=== PATIENT | female | born 1975 | race African-American/Black ===

== ENCOUNTER 2016-09-01 16:58 | Inpatient (IN) | payer OTHER ==
[2016-09-01 17:33] VITALS: BMI 31.3
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
[2016-09-01] MEDS ORDERED: P-EPHED 60MG/TRIPROLIDI 2.5MG TABLET PO PRN (18:14)
[2016-09-01] MEDS ORDERED: MAG HYDROX/AL HYDROX/SIMETH 30 ML UNIT-DOSE CUP PO PRN (18:14)
[2016-09-01] MEDS ORDERED: MAGNESIUM HYDROX 2400MG/30ML ORAL SUSPENSION 30 ML CUP PO PRN (18:14)
[2016-09-01] MEDS ORDERED: MAGNESIUM CITRATE 300 ML BOTTLE PO PRN (18:14)
[2016-09-01] MEDS ORDERED: MENTHOL/PHENOL 1 EACH UD MM PRN (18:14)
[2016-09-01] MEDS ORDERED: hydrOXYzine PAMOATE 50 MG CAPSULE (FP) PO PRN (18:14)
[2016-09-01] MEDS: QUEtiapine FUMARATE 200 MG TABLET PO SCH (22:49)
[2016-09-01] MEDS: THIAMINE HCL 100 MG TABLET (FP) PO SCH (22:49)
[2016-09-01] MEDS: RANITIDINE HCL 150 MG TABLET (FP) PO SCH (22:49)
[2016-09-01 23:28] LABS: URINE APPEARANCE CLOUDY; URINE BILIRUBIN NEGATIVE (NEGATIVE); URINE BLOOD NEGATIVE (NEGATIVE); URINE COLOR YELLOW; URINE GLUCOSE (UA) NEGATIVE (NEGATIVE); URINE KETONE NEGATIVE (NEGATIVE); URINE LEUK ESTERASE TRACE (NEGATIVE); URINE NITRITE NEGATIVE (NEGATIVE); URINE PROTEIN NEGATIVE (NEGATIVE); URINE UROBILINOGEN NEGATIVE E.U./dl (0.2-1.0)
[2016-09-01 23:44] LABS: URINE MUCUS RARE; URINE RBC 3 /hpf (0-3); URINE WBC 44 /hpf (3-5)
[2016-09-02] MEDS: metFORMIN HCL 500 MG TABLET (FP) PO SCH ×2 (06:39→16:50)
[2016-09-02] MEDS: PRENATAL VITAMINS W/ FOLIC ACID TABLET (FP) PO SCH (09:26)
[2016-09-02] MEDS: LISINOPRIL 10 MG TABLET (FP) PO SCH (09:26)
[2016-09-02] MEDS: RANITIDINE HCL 150 MG TABLET (FP) PO SCH ×2 (09:26→21:12)
[2016-09-02] MEDS: NICOTINE 14 MG/24 HOURS TOPICAL PATCH TD SCH (09:27)
[2016-09-02] MEDS: ARIPiprazole 10 MG TABLET PO SCH (09:27)
[2016-09-02 11:08] LABS: MCH 26.6 pg (25.7-33.7); MCHC 32.4 g/dl (32.0-36.0); MEAN CELL VOLUME 82.2 fl (80-96); MEAN PLT VOLUME 9.7 fl (7.5-11.1); PLATELET COUNT 294 K/MM3 (134-434); RDW 18.3 % (11.6-15.6); WHITE BLOOD COUNT 6.7 K/mm3 (4.0-10.0)
[2016-09-02 11:20] LABS: ALBUMIN 3.3 g/dl (3.4-5.0); ALK PHOS 75 U/L (45-117); ANION GAP 10 (8-16); BILIRUBIN,TOTAL 0.2 mg/dL (0.2-1.0); CALCIUM 9.2 mg/dL (8.5-10.1); CO2 23 mmol/L (21-32); COCKROFT - GAULT 174.9215; CREATININE 0.6 mg/dL (0.55-1.02); GLUCOSE,RANDOM 122 mg/dL (74-106); SGOT/AST 16 U/L (15-37); SGPT/ALT 17 U/L (12-78); TOT PROT 7.1 g/dl (6.4-8.2)
--- NOTE | 2016-09-02 11:26 | EKG ---
Test Reason : Blood Pressure : / mmHG Vent. Rate : 085 BPM Atrial Rate : 085 BPM P-R Int : 138 ms QRS Dur : 092 ms QT Int : 394 ms P-R-T Axes : 043 059 046 degrees QTc Int : 468 ms NORMAL SINUS RHYTHM NORMAL ECG NO PREVIOUS ECGS AVAILABLE Confirmed by DIANELYS HARRIS MD ([id number]) on 09/02/2016 11:25:35 AM Referred By: Confirmed By:DIANELYS HARRIS MD
[2016-09-02 12:25] LABS: HIV 1 & 2 AB NEGATIVE; HIV 1 AGp24 NEGATIVE
[2016-09-02] MEDS: THIAMINE HCL 100 MG TABLET (FP) PO SCH (21:12)
[2016-09-02] MEDS: QUEtiapine FUMARATE 200 MG TABLET PO SCH (21:12)
[2016-09-03] MEDS: metFORMIN HCL 500 MG TABLET (FP) PO SCH ×2 (06:18→17:05)
[2016-09-03] MEDS: RANITIDINE HCL 150 MG TABLET (FP) PO SCH ×2 (09:48→21:13)
[2016-09-03] MEDS: LISINOPRIL 10 MG TABLET (FP) PO SCH (09:48)
[2016-09-03] MEDS: PRENATAL VITAMINS W/ FOLIC ACID TABLET (FP) PO SCH (09:48)
[2016-09-03] MEDS: ARIPiprazole 10 MG TABLET PO SCH (09:48)
[2016-09-03] MEDS: NICOTINE 14 MG/24 HOURS TOPICAL PATCH TD SCH (09:49)
[2016-09-03] MEDS: QUEtiapine FUMARATE 200 MG TABLET PO SCH (21:13)
[2016-09-03] MEDS: THIAMINE HCL 100 MG TABLET (FP) PO SCH (21:13)
[2016-09-04] MEDS: metFORMIN HCL 500 MG TABLET (FP) PO SCH ×2 (06:17→17:12)
[2016-09-04] MEDS: PRENATAL VITAMINS W/ FOLIC ACID TABLET (FP) PO SCH (09:47)
[2016-09-04] MEDS: LISINOPRIL 10 MG TABLET (FP) PO SCH (09:47)
[2016-09-04] MEDS: ARIPiprazole 10 MG TABLET PO SCH (09:47)
[2016-09-04] MEDS: RANITIDINE HCL 150 MG TABLET (FP) PO SCH ×2 (09:47→21:05)
[2016-09-04] MEDS: NICOTINE 14 MG/24 HOURS TOPICAL PATCH TD SCH (09:47)
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
[2016-09-04] MEDS: traZODone HCL 100 MG TABLET (FP) PO SCH (21:05)
[2016-09-04] MEDS: THIAMINE HCL 100 MG TABLET (FP) PO SCH (21:06)
[2016-09-04] MEDS: NICOTINE POLACRILEX 2 MG GUM BC PRN (21:06)
[2016-09-05] MEDS: metFORMIN HCL 500 MG TABLET (FP) PO SCH ×2 (06:22→16:47)
[2016-09-05] MEDS: RANITIDINE HCL 150 MG TABLET (FP) PO SCH ×2 (09:38→21:08)
[2016-09-05] MEDS: LISINOPRIL 10 MG TABLET (FP) PO SCH (09:38)
[2016-09-05] MEDS: ARIPiprazole 10 MG TABLET PO SCH (09:38)
[2016-09-05] MEDS: PRENATAL VITAMINS W/ FOLIC ACID TABLET (FP) PO SCH (09:38)
[2016-09-05] MEDS: NICOTINE 14 MG/24 HOURS TOPICAL PATCH TD SCH (09:38)
[2016-09-05] MEDS: THIAMINE HCL 100 MG TABLET (FP) PO SCH (21:08)
[2016-09-05] MEDS: traZODone HCL 100 MG TABLET (FP) PO SCH (21:08)
[2016-09-06] MEDS: metFORMIN HCL 500 MG TABLET (FP) PO SCH ×2 (06:20→17:08)
[2016-09-06] MEDS: PRENATAL VITAMINS W/ FOLIC ACID TABLET (FP) PO SCH (09:47)
[2016-09-06] MEDS: LISINOPRIL 10 MG TABLET (FP) PO SCH (09:47)
[2016-09-06] MEDS: ARIPiprazole 10 MG TABLET PO SCH (09:47)
[2016-09-06] MEDS: RANITIDINE HCL 150 MG TABLET (FP) PO SCH ×2 (09:47→21:09)
[2016-09-06] MEDS: NICOTINE 14 MG/24 HOURS TOPICAL PATCH TD SCH (09:48)
[2016-09-06] MEDS: traZODone HCL 100 MG TABLET (FP) PO SCH (21:09)
[2016-09-06] MEDS: THIAMINE HCL 100 MG TABLET (FP) PO SCH (21:09)
[2016-09-07] MEDS: metFORMIN HCL 500 MG TABLET (FP) PO SCH ×2 (06:32→16:31)
[2016-09-07] MEDS: NICOTINE 14 MG/24 HOURS TOPICAL PATCH TD SCH (09:39)
[2016-09-07] MEDS: ARIPiprazole 10 MG TABLET PO SCH (09:39)
[2016-09-07] MEDS: PRENATAL VITAMINS W/ FOLIC ACID TABLET (FP) PO SCH (09:40)
[2016-09-07] MEDS: RANITIDINE HCL 150 MG TABLET (FP) PO SCH ×2 (09:40→21:13)
[2016-09-07] MEDS: LISINOPRIL 10 MG TABLET (FP) PO SCH (09:40)
[2016-09-07] MEDS: traZODone HCL 100 MG TABLET (FP) PO SCH (21:13)
[2016-09-07] MEDS: THIAMINE HCL 100 MG TABLET (FP) PO SCH (21:13)
[2016-09-08] MEDS: metFORMIN HCL 500 MG TABLET (FP) PO SCH ×2 (07:03→16:50)
[2016-09-08] MEDS: ARIPiprazole 10 MG TABLET PO SCH (09:39)
[2016-09-08] MEDS: PRENATAL VITAMINS W/ FOLIC ACID TABLET (FP) PO SCH (09:39)
[2016-09-08] MEDS: RANITIDINE HCL 150 MG TABLET (FP) PO SCH ×2 (09:40→21:14)
[2016-09-08] MEDS: NICOTINE 14 MG/24 HOURS TOPICAL PATCH TD SCH (09:40)
[2016-09-08] MEDS: LISINOPRIL 10 MG TABLET (FP) PO SCH (10:37)
[2016-09-08] MEDS: THIAMINE HCL 100 MG TABLET (FP) PO SCH (21:14)
[2016-09-08] MEDS: traZODone HCL 100 MG TABLET (FP) PO SCH (21:14)
[2016-09-09] MEDS: metFORMIN HCL 500 MG TABLET (FP) PO SCH ×2 (06:52→16:58)
[2016-09-09] MEDS: NICOTINE 14 MG/24 HOURS TOPICAL PATCH TD SCH (09:34)
[2016-09-09] MEDS: ARIPiprazole 10 MG TABLET PO SCH (09:34)
[2016-09-09] MEDS: PRENATAL VITAMINS W/ FOLIC ACID TABLET (FP) PO SCH (09:34)
[2016-09-09] MEDS: LISINOPRIL 10 MG TABLET (FP) PO SCH (09:34)
[2016-09-09] MEDS: RANITIDINE HCL 150 MG TABLET (FP) PO SCH ×2 (09:35→21:11)
[2016-09-09] MEDS: IBUPROFEN 400 MG TABLET (FP) PO PRN (18:29)
[2016-09-09] MEDS: THIAMINE HCL 100 MG TABLET (FP) PO SCH (21:09)
[2016-09-09] MEDS: traZODone HCL 100 MG TABLET (FP) PO SCH (21:10)
[2016-09-10] MEDS: metFORMIN HCL 500 MG TABLET (FP) PO SCH ×2 (06:46→17:43)
[2016-09-10] MEDS: IBUPROFEN 400 MG TABLET (FP) PO PRN ×3 (07:23→20:12)
[2016-09-10] MEDS: NICOTINE 14 MG/24 HOURS TOPICAL PATCH TD SCH (09:33)
[2016-09-10] MEDS: ARIPiprazole 10 MG TABLET PO SCH (09:33)
[2016-09-10] MEDS: PRENATAL VITAMINS W/ FOLIC ACID TABLET (FP) PO SCH (09:34)
[2016-09-10] MEDS: LISINOPRIL 10 MG TABLET (FP) PO SCH (09:34)
[2016-09-10] MEDS: RANITIDINE HCL 150 MG TABLET (FP) PO SCH ×2 (09:34→21:10)
[2016-09-10] MEDS: NICOTINE POLACRILEX 2 MG GUM BC PRN ×2 (09:35→17:44)
[2016-09-10] MEDS ORDERED: traZODone HCL 50 MG TABLET (FP) ONE (20:44)
[2016-09-10] MEDS: THIAMINE HCL 100 MG TABLET (FP) PO SCH (21:10)
[2016-09-10] MEDS: traZODone HCL 100 MG TABLET (FP) PO SCH (21:11)
[2016-09-10] MEDS: ACETAMINOPHEN 325 MG TABLET (FP) PO PRN (22:09)
[2016-09-11] MEDS: metFORMIN HCL 500 MG TABLET (FP) PO SCH ×2 (06:39→16:46)
[2016-09-11] MEDS: IBUPROFEN 400 MG TABLET (FP) PO PRN (07:13)
[2016-09-11] MEDS ORDERED: ARIPiprazole 5 MG TABLET (FP) ONE (08:46)
[2016-09-11] MEDS: RANITIDINE HCL 150 MG TABLET (FP) PO SCH ×2 (09:50→21:06)
[2016-09-11] MEDS: PRENATAL VITAMINS W/ FOLIC ACID TABLET (FP) PO SCH (09:50)
[2016-09-11] MEDS: LISINOPRIL 10 MG TABLET (FP) PO SCH (09:51)
[2016-09-11] MEDS: NICOTINE 14 MG/24 HOURS TOPICAL PATCH TD SCH (09:52)
[2016-09-11] MEDS: ARIPiprazole 10 MG TABLET PO SCH (09:52)
[2016-09-11] MEDS: NICOTINE POLACRILEX 2 MG GUM BC PRN (13:06)
--- NOTE | 2016-09-11 13:30 | PN ---
[facility] Progress Note Note: Pt. c/o dental abscess left lower molar. Mouth : Swollen gum in the area of 1st lt. lower molar P : viscous lidocaine clindamycin motrin 600mg
[2016-09-11] MEDS ORDERED: LIDOCAINE VISCOUS 2% ORAL/TOP 20 ML UNIT-DOSE CUP MM PRN (13:31)
[2016-09-11] MEDS: CLINDAMYCIN HCL 150 MG CAPSULE (FP) PO SCH ×3 (14:39→21:06)
[2016-09-11] MEDS: IBUPROFEN 600 MG TABLET (FP) PO PRN (18:08)
[2016-09-11] MEDS: THIAMINE HCL 100 MG TABLET (FP) PO SCH (21:06)
[2016-09-11] MEDS: traZODone HCL 100 MG TABLET (FP) PO SCH (21:06)
[2016-09-11] MEDS: LISINOPRIL 5 MG TABLET (FP) PO SCH (21:07)
[2016-09-12] MEDS: metFORMIN HCL 500 MG TABLET (FP) PO SCH ×2 (06:02→17:08)
[2016-09-12] MEDS: IBUPROFEN 600 MG TABLET (FP) PO PRN (09:47)
[2016-09-12] MEDS: PRENATAL VITAMINS W/ FOLIC ACID TABLET (FP) PO SCH (09:47)
[2016-09-12] MEDS: ARIPiprazole 10 MG TABLET PO SCH (09:48)
[2016-09-12] MEDS: CLINDAMYCIN HCL 150 MG CAPSULE (FP) PO SCH ×4 (09:48→21:22)
[2016-09-12] MEDS: RANITIDINE HCL 150 MG TABLET (FP) PO SCH ×2 (09:48→21:22)
[2016-09-12] MEDS: LISINOPRIL 5 MG TABLET (FP) PO SCH ×2 (09:48→21:22)
[2016-09-12] MEDS: NICOTINE 14 MG/24 HOURS TOPICAL PATCH TD SCH (09:49)
[2016-09-12] MEDS: traZODone HCL 100 MG TABLET (FP) PO SCH (21:22)
[2016-09-12] MEDS: THIAMINE HCL 100 MG TABLET (FP) PO SCH (21:22)
[2016-09-12] MEDS: ACETAMINOPHEN 325 MG TABLET (FP) PO PRN (21:23)
[2016-09-13] MEDS: metFORMIN HCL 500 MG TABLET (FP) PO SCH ×2 (06:32→17:20)
[2016-09-13] MEDS: LOPERAMIDE HCL 2 MG CAPSULE PO PRN (06:47)
[2016-09-13] MEDS: LISINOPRIL 5 MG TABLET (FP) PO SCH ×2 (09:46→21:16)
[2016-09-13] MEDS: CLINDAMYCIN HCL 150 MG CAPSULE (FP) PO SCH ×4 (09:46→21:16)
[2016-09-13] MEDS: ARIPiprazole 10 MG TABLET PO SCH (09:46)
[2016-09-13] MEDS: RANITIDINE HCL 150 MG TABLET (FP) PO SCH ×2 (09:47→21:16)
[2016-09-13] MEDS: NICOTINE 14 MG/24 HOURS TOPICAL PATCH TD SCH (09:47)
[2016-09-13] MEDS: PRENATAL VITAMINS W/ FOLIC ACID TABLET (FP) PO SCH (09:47)
[2016-09-13] MEDS: THIAMINE HCL 100 MG TABLET (FP) PO SCH (21:16)
[2016-09-13] MEDS: traZODone HCL 100 MG TABLET (FP) PO SCH (21:16)
[2016-09-13] MEDS: ACETAMINOPHEN 325 MG TABLET (FP) PO PRN (21:17)
[2016-09-14] MEDS: metFORMIN HCL 500 MG TABLET (FP) PO SCH ×2 (06:34→16:34)
[2016-09-14] MEDS: ALBUTEROL SO4 6.7 GM HFA INHALER IH PRN (08:54)
[2016-09-14] MEDS: PRENATAL VITAMINS W/ FOLIC ACID TABLET (FP) PO SCH (09:49)
[2016-09-14] MEDS: CLINDAMYCIN HCL 150 MG CAPSULE (FP) PO SCH ×4 (09:49→21:09)
[2016-09-14] MEDS: RANITIDINE HCL 150 MG TABLET (FP) PO SCH ×2 (09:49→21:09)
[2016-09-14] MEDS: ARIPiprazole 10 MG TABLET PO SCH (09:49)
[2016-09-14] MEDS: LISINOPRIL 5 MG TABLET (FP) PO SCH ×2 (09:49→21:09)
[2016-09-14] MEDS: NICOTINE POLACRILEX 2 MG GUM BC PRN (09:51)
[2016-09-14] MEDS: NICOTINE 14 MG/24 HOURS TOPICAL PATCH TD SCH (09:51)
[2016-09-14] MEDS ORDERED: BENZOCAINE 20 % GEL 9 GM TUBE MM PRN (13:00)
[2016-09-14] MEDS: LOPERAMIDE HCL 2 MG CAPSULE PO PRN (18:01)
[2016-09-14] MEDS: THIAMINE HCL 100 MG TABLET (FP) PO SCH (21:09)
[2016-09-14] MEDS: traZODone HCL 100 MG TABLET (FP) PO SCH (21:09)
[2016-09-15] MEDS: metFORMIN HCL 500 MG TABLET (FP) PO SCH ×2 (06:05→17:14)
[2016-09-15] MEDS: PRENATAL VITAMINS W/ FOLIC ACID TABLET (FP) PO SCH (10:05)
[2016-09-15] MEDS: CLINDAMYCIN HCL 150 MG CAPSULE (FP) PO SCH ×4 (10:05→21:17)
[2016-09-15] MEDS: ARIPiprazole 10 MG TABLET PO SCH (10:05)
[2016-09-15] MEDS: RANITIDINE HCL 150 MG TABLET (FP) PO SCH ×2 (10:05→21:18)
[2016-09-15] MEDS: LISINOPRIL 5 MG TABLET (FP) PO SCH ×2 (10:05→21:18)
[2016-09-15] MEDS: NICOTINE 14 MG/24 HOURS TOPICAL PATCH TD SCH (10:07)
[2016-09-15] MEDS: IBUPROFEN 600 MG TABLET (FP) PO PRN (17:33)
[2016-09-15] MEDS ORDERED: traZODone HCL 50 MG TABLET (FP) ONE (19:23)
[2016-09-15] MEDS: traZODone HCL 100 MG TABLET (FP) PO SCH (21:17)
[2016-09-15] MEDS: THIAMINE HCL 100 MG TABLET (FP) PO SCH (21:18)
[2016-09-15] MEDS: ACETAMINOPHEN 325 MG TABLET (FP) PO PRN (21:18)
[2016-09-16] MEDS: IBUPROFEN 600 MG TABLET (FP) PO PRN ×2 (03:57→17:52)
[2016-09-16] MEDS: LOPERAMIDE HCL 2 MG CAPSULE PO PRN ×2 (03:57→11:03)
[2016-09-16] MEDS: guaiFENesin/D-METHORPHAN HB 10 ML UNIT-DOSE CUPS PO PRN ×3 (03:58→17:52)
[2016-09-16] MEDS: metFORMIN HCL 500 MG TABLET (FP) PO SCH ×2 (06:47→16:50)
[2016-09-16] MEDS ORDERED: PT OWN MED DRAWER 7, Y5N ONE (08:56)
[2016-09-16] MEDS: NICOTINE 14 MG/24 HOURS TOPICAL PATCH TD SCH (09:33)
[2016-09-16] MEDS: ALBUTEROL SO4 6.7 GM HFA INHALER IH PRN (09:33)
[2016-09-16] MEDS: ARIPiprazole 10 MG TABLET PO SCH (09:34)
[2016-09-16] MEDS: RANITIDINE HCL 150 MG TABLET (FP) PO SCH ×2 (09:34→21:14)
[2016-09-16] MEDS: PRENATAL VITAMINS W/ FOLIC ACID TABLET (FP) PO SCH (09:34)
[2016-09-16] MEDS: LISINOPRIL 5 MG TABLET (FP) PO SCH ×2 (09:34→21:15)
[2016-09-16] MEDS: CLINDAMYCIN HCL 150 MG CAPSULE (FP) PO SCH ×4 (09:34→21:14)
[2016-09-16] MEDS: ACETAMINOPHEN 325 MG TABLET (FP) PO PRN (14:35)
[2016-09-16] MEDS: diphenhydrAMINE HCL 50 MG CAPSULE PO PRN (21:14)
[2016-09-16] MEDS: traZODone HCL 100 MG TABLET (FP) PO SCH (21:14)
[2016-09-16] MEDS: THIAMINE HCL 100 MG TABLET (FP) PO SCH (21:15)
[2016-09-17] MEDS: metFORMIN HCL 500 MG TABLET (FP) PO SCH ×2 (06:24→16:50)
[2016-09-17] MEDS ORDERED: PT OWN MED DRAWER 7, Y5N ONE (08:20)
[2016-09-17] MEDS: ARIPiprazole 10 MG TABLET PO SCH (09:33)
[2016-09-17] MEDS: PRENATAL VITAMINS W/ FOLIC ACID TABLET (FP) PO SCH (09:33)
[2016-09-17] MEDS: RANITIDINE HCL 150 MG TABLET (FP) PO SCH ×2 (09:34→21:20)
[2016-09-17] MEDS: LISINOPRIL 5 MG TABLET (FP) PO SCH ×2 (09:34→21:22)
[2016-09-17] MEDS: NICOTINE 14 MG/24 HOURS TOPICAL PATCH TD SCH (09:34)
[2016-09-17] MEDS: CLINDAMYCIN HCL 150 MG CAPSULE (FP) PO SCH ×4 (09:34→21:21)
[2016-09-17] MEDS: diphenhydrAMINE HCL 50 MG CAPSULE PO PRN (21:20)
[2016-09-17] MEDS: traZODone HCL 100 MG TABLET (FP) PO SCH (21:20)
[2016-09-17] MEDS: THIAMINE HCL 100 MG TABLET (FP) PO SCH (21:20)
[2016-09-18] MEDS: metFORMIN HCL 500 MG TABLET (FP) PO SCH ×2 (06:26→16:56)
[2016-09-18] MEDS: ARIPiprazole 10 MG TABLET PO SCH (09:41)
[2016-09-18] MEDS: CLINDAMYCIN HCL 150 MG CAPSULE (FP) PO SCH ×2 (09:41→13:21)
[2016-09-18] MEDS: RANITIDINE HCL 150 MG TABLET (FP) PO SCH ×2 (09:42→21:13)
[2016-09-18] MEDS: NICOTINE 14 MG/24 HOURS TOPICAL PATCH TD SCH (09:42)
[2016-09-18] MEDS: LISINOPRIL 5 MG TABLET (FP) PO SCH ×2 (09:42→21:13)
[2016-09-18] MEDS: PRENATAL VITAMINS W/ FOLIC ACID TABLET (FP) PO SCH (09:42)
--- NOTE | 2016-09-18 13:02 | EKG ---
Test Reason : Blood Pressure : / mmHG Vent. Rate : 076 BPM Atrial Rate : 076 BPM P-R Int : 168 ms QRS Dur : 102 ms QT Int : 402 ms P-R-T Axes : 031 047 019 degrees QTc Int : 452 ms NORMAL SINUS RHYTHM NORMAL ECG WHEN COMPARED WITH ECG OF 01-SEP-2016 18:52, NO SIGNIFICANT CHANGE WAS FOUND Confirmed by ROBERT CHAMORRO MD ([id number]) on 09/18/2016 1:01:57 PM Referred By: Confirmed By:ROBERT CHAMORRO MD
[2016-09-18] MEDS: LOPERAMIDE HCL 2 MG CAPSULE PO PRN (16:14)
[2016-09-18] MEDS: guaiFENesin/D-METHORPHAN HB 10 ML UNIT-DOSE CUPS PO PRN (19:15)
[2016-09-18] MEDS: THIAMINE HCL 100 MG TABLET (FP) PO SCH (21:12)
[2016-09-18] MEDS: traZODone HCL 100 MG TABLET (FP) PO SCH (21:13)
[2016-09-18] MEDS: diphenhydrAMINE HCL 50 MG CAPSULE PO PRN (21:13)
[2016-09-18] MEDS ORDERED: PT OWN MED DRAWER 7, Y5N ONE (23:04)
[2016-09-19] MEDS: metFORMIN HCL 500 MG TABLET (FP) PO SCH ×2 (06:20→16:48)
[2016-09-19] MEDS: PRENATAL VITAMINS W/ FOLIC ACID TABLET (FP) PO SCH (09:53)
[2016-09-19] MEDS: ARIPiprazole 10 MG TABLET PO SCH (09:53)
[2016-09-19] MEDS: NICOTINE 14 MG/24 HOURS TOPICAL PATCH TD SCH (09:53)
[2016-09-19] MEDS: RANITIDINE HCL 150 MG TABLET (FP) PO SCH ×2 (09:53→21:06)
[2016-09-19] MEDS: LISINOPRIL 5 MG TABLET (FP) PO SCH ×2 (10:06→21:06)
[2016-09-19] MEDS: THIAMINE HCL 100 MG TABLET (FP) PO SCH (21:06)
[2016-09-19] MEDS: traZODone HCL 100 MG TABLET (FP) PO SCH (21:06)
[2016-09-20] MEDS: metFORMIN HCL 500 MG TABLET (FP) PO SCH ×2 (06:26→16:30)
[2016-09-20] MEDS ORDERED: PT OWN MED DRAWER 7, Y5N ONE (09:00)
[2016-09-20] MEDS: NICOTINE 14 MG/24 HOURS TOPICAL PATCH TD SCH (09:55)
[2016-09-20] MEDS: LISINOPRIL 5 MG TABLET (FP) PO SCH ×2 (09:56→21:10)
[2016-09-20] MEDS: RANITIDINE HCL 150 MG TABLET (FP) PO SCH ×2 (09:56→21:10)
[2016-09-20] MEDS: ARIPiprazole 10 MG TABLET PO SCH (09:56)
[2016-09-20] MEDS: PRENATAL VITAMINS W/ FOLIC ACID TABLET (FP) PO SCH (09:56)
[2016-09-20] MEDS: traZODone HCL 100 MG TABLET (FP) PO SCH (21:10)
[2016-09-20] MEDS: diphenhydrAMINE HCL 50 MG CAPSULE PO PRN (21:10)
[2016-09-20] MEDS: THIAMINE HCL 100 MG TABLET (FP) PO SCH (21:10)
[2016-09-21] MEDS: metFORMIN HCL 500 MG TABLET (FP) PO SCH ×2 (06:20→16:42)
[2016-09-21] MEDS: PRENATAL VITAMINS W/ FOLIC ACID TABLET (FP) PO SCH (09:47)
[2016-09-21] MEDS: ARIPiprazole 10 MG TABLET PO SCH (09:47)
[2016-09-21] MEDS: NICOTINE 14 MG/24 HOURS TOPICAL PATCH TD SCH (09:48)
[2016-09-21] MEDS: LISINOPRIL 5 MG TABLET (FP) PO SCH ×2 (09:48→21:16)
[2016-09-21] MEDS: RANITIDINE HCL 150 MG TABLET (FP) PO SCH ×2 (09:48→21:15)
[2016-09-21] MEDS: traZODone HCL 100 MG TABLET (FP) PO SCH (21:15)
[2016-09-21] MEDS: THIAMINE HCL 100 MG TABLET (FP) PO SCH (21:15)
[2016-09-21] MEDS: diphenhydrAMINE HCL 50 MG CAPSULE PO PRN (21:17)
[2016-09-22] MEDS: metFORMIN HCL 500 MG TABLET (FP) PO SCH (06:48)
[2016-09-22 06:56] VITALS: TEMP 97.9
[2016-09-22] MEDS: PRENATAL VITAMINS W/ FOLIC ACID TABLET (FP) PO SCH (09:28)
[2016-09-22] MEDS: RANITIDINE HCL 150 MG TABLET (FP) PO SCH (09:28)
[2016-09-22] MEDS: LISINOPRIL 5 MG TABLET (FP) PO SCH (09:28)
[2016-09-22] MEDS: ARIPiprazole 10 MG TABLET PO SCH (09:28)
[2016-09-22] MEDS: NICOTINE 14 MG/24 HOURS TOPICAL PATCH TD SCH (09:29)
[2016-09-22 10:15] VITALS: BP 102/70; PULSE 106
--- NOTE | 2016-09-22 14:50 | PN ---
[facility] Progress Note Note: Called by nursing staff this morning for discharge order for patient. According staff, she was referred to [facility] for outpatient treatment She was on Abilify 20 mg po daily and Trazadone 20 mg po HS. Scripts for these medications were electronically transferred to [facility] at [address] [place] [address]. Patient, according to saff was stable on discharge. See staff note for further information
== END 2016-09-22 09:42 | disposition home or self-care (01) | DRG 772 ==
LOC: YASAS 16:58 → Y3E 18:40
PROVIDERS: ADMIT Psychiatry & Neurology Psychiatry; ATTEND Psychiatry & Neurology Psychiatry
PROC: HZ42ZZZ Group Counseling for Substance Abuse Treatment, Cognitive-Behavioral (ICD-10-PCS; principal; 2016-09-22)
DX: F14.20 Cocaine dependence, uncomplicated (principal); F12.20 Cannabis dependence, uncomplicated; F17.213 Nicotine dependence, cigarettes, with withdrawal; F25.1 Schizoaffective disorder, depressive type; F31.9 Bipolar disorder, unspecified; I10 Essential (primary) hypertension; K21.9 Gastro-esophageal reflux disease without esophagitis; E11.42 Type 2 diabetes mellitus with diabetic polyneuropathy; Z79.84 Long term (current) use of oral hypoglycemic drugs; J45.22 Mild intermittent asthma with status asthmaticus; Z86.19 Personal history of other infectious and parasitic diseases
CPT/HCPCS: 36415; 80053; 81003; 81015; 85027; 86593; 87389; 93005; 93010

== ENCOUNTER 2018-06-17 13:41 | Inpatient (IN) | payer OTHER ==
[2018-06-17 15:40] VITALS: BMI 23.0
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
[2018-06-17] MEDS ORDERED: ALBUTEROL SO4 8 GM HFA INHALER IH PRN (19:27)
[2018-06-17] MEDS ORDERED: MAGNESIUM CITRATE 300 ML BOTTLE PO PRN (19:28)
[2018-06-17] MEDS ORDERED: MAG HYDROX/AL HYDROX/SIMETH 30 ML UNIT-DOSE CUP PO PRN (19:28)
[2018-06-17] MEDS ORDERED: guaiFENesin/D-METHORPHAN HB 10 ML UNIT-DOSE CUPS PO PRN (19:28)
[2018-06-17] MEDS ORDERED: ACETAMINOPHEN 325 MG TABLET (FP) PO PRN (19:28)
[2018-06-17] MEDS ORDERED: LOPERAMIDE HCL 2 MG CAPSULE PO PRN (19:28)
[2018-06-17] MEDS ORDERED: NICOTINE POLACRILEX 2 MG GUM BC PRN (19:28)
[2018-06-17] MEDS ORDERED: MENTHOL/PHENOL 1 EACH UD MM PRN (19:28)
[2018-06-17] MEDS ORDERED: IBUPROFEN 400 MG TABLET (FP) PO PRN (19:28)
[2018-06-17] MEDS ORDERED: MAGNESIUM HYDROX 2400MG/30ML ORAL SUSPENSION 30 ML CUP PO PRN (19:28)
[2018-06-17] MEDS ORDERED: P-EPHED 60MG/TRIPROLIDI 2.5MG TABLET PO PRN (19:28)
[2018-06-17] MEDS ORDERED: diazePAM 5 MG TABLET PO ONE (19:28)
[2018-06-17] MEDS: diazePAM 5 MG TABLET PO SCH (22:18)
[2018-06-17] MEDS: RANITIDINE HCL 150 MG TABLET (FP) PO SCH (22:18)
[2018-06-17] MEDS: THIAMINE HCL 100 MG TABLET (FP) PO SCH (22:18)
[2018-06-18] MEDS: diazePAM 5 MG TABLET PO SCH ×3 (05:47→22:49)
[2018-06-18] MEDS: FERROUS SO4 325 MG TABLET (FP) PO SCH ×3 (08:11→17:19)
[2018-06-18] MEDS: diazePAM 5 MG TABLET PO PRN ×2 (10:11→17:18)
[2018-06-18] MEDS: LISINOPRIL 10 MG TABLET (FP) PO SCH (10:11)
[2018-06-18] MEDS: RANITIDINE HCL 150 MG TABLET (FP) PO SCH ×2 (10:11→22:49)
[2018-06-18] MEDS: PRENATAL VITAMINS W/ FOLIC ACID TABLET (FP) PO SCH (10:11)
[2018-06-18] MEDS: NICOTINE 14 MG/24 HOURS TOPICAL PATCH TD SCH (10:12)
[2018-06-18 10:51] LABS: HEMATOCRIT 34.7 % (32.4-45.2); HEMOGLOBIN 11.6 GM/dL (10.7-15.3); MCH 28.1 pg (25.7-33.7); MCHC 33.3 g/dl (32.0-36.0); MEAN CELL VOLUME 84.4 fl (80-96); MEAN PLT VOLUME 9.5 fl (7.5-11.1); PLATELET COUNT 270 K/MM3 (134-434); RBC 4.11 M/mm3 (3.60-5.2); RDW 18.7 % (11.6-15.6); WHITE BLOOD COUNT 3.6 K/mm3 (4.0-10.0)
--- NOTE | 2018-06-18 10:57 | PN ---
S CIWA - CIWA Score Nausea/Vomitin-No Nausea/No Vomiting Muscle Tremors: 4-Moderate,w/Arms Extend Anxiety: 4-Mod. Anxious/Guarded Agitation: 4-Moderately Restless Paroxysmal Sweats: 3 Orientation: 0-Oriented Tacttile Disturbances: 0-None Auditory Disturbances: 0-None Visual Disturbances: 0-None Headache: 1-Very Mild CIWA-Ar Total Score: 16 [facility] Progress Note (SOAP) Subjective: headache sweats shakes interrupted sleep body aches restless nasal congestion chills Objective: 06/18/18 10:55 Vital Signs Temperature 98.1 F 06/18/18 10:00 Pulse Rate 72 06/18/18 10:00 Respiratory Rate 18 06/18/18 10:00 Blood Pressure 125/58 L 06/18/18 10:00 O2 Sat by Pulse Oximetry (%) Laboratory Tests 06/17/18 17:02 POC Glucometer 130 rest of labs pending aaox3 lying in bed no acute distress Assessment: 06/18/18 10:56 withdrawal sx Plan: continue detox increase fluids motrin/tylenol prn
[2018-06-18 11:10] LABS: ALK PHOS 64 U/L (45-117); ANION GAP 3 MMOL/L (8-16); BILIRUBIN,TOTAL 0.1 mg/dL (0.2-1); BLOOD UREA NITROGEN 12 mg/dL (7-18); CALCIUM 8.5 mg/dL (8.5-10.1); CHLORIDE 111 mmol/L (98-107); CO2 26 mmol/L (21-32); CREATININE 0.6 mg/dL (0.55-1.3); GLUCOSE,RANDOM 103 mg/dL (74-106); SGOT/AST 19 U/L (15-37); SGPT/ALT 24 U/L (13-61); SODIUM 140 mmol/L (136-145); TOT PROT 6.1 g/dl (6.4-8.2)
[2018-06-18] MEDS ORDERED: FLU VACCINE QUAD 60 MCG/0.5 ML (MDV 18-19) IM ONE (12:00)
--- NOTE | 2018-06-18 13:41 | CONSULT ---
[facility] Psychiatric Consult - Data Date of interview: 06/18/18 Admission source: [facility] Identifying data: Patient is a 43 year old single female, without children, unemployed, and currently homeless. This is one of multiple admissions for patient. Patient admitted to for alcohol dependence. Substance Abuse History: Smoking Cessation. Smoking history: Current every day smoker. Have you smoked in the past 12 months: Yes. Aproximately how many cigarettes per day: 20. Cigars Per Day: 0. Hx Chewing Tobacco Use: No. Initiated information on smoking cessation: Yes. 'Breaking Loose' booklet given : 06/17/18. - Substance & Tx. History. Hx Alcohol Use: Yes. Hx Substance Use : Yes. Substance Use Type: Alcohol, Cocaine, Marijuana. Hx Substance Use Treatment: Yes (last detox summer). - Substances Abused. Alcohol. Route: Oral. Frequency: Daily. Amount used: 3 pints vodka. Age of first use: 16. Date of Last Use: 06/16/18. Crack. Route: Smoking. Frequency: Daily. Amount used: $400. Age of first use: 28. Date of Last Use: 06/16/18. Marijuana/Hashish. Route: Smoking. Frequency: Daily. Amount used: $50. Age of first use: 13. Date of Last Use: 06/16/18. crystal meth. Route: Smoking. Frequency: 3-6 times per week. Amount used: 3 grams. Age of first use: 43. Date of Last Use: 06/16/18 Medical History: anemia, hypertension, Hypercholesterolemia, hx hep B Psychiatric History: Patient presents as a poor historian, lethargic and mildly irritable. She reports h/o multiple hospitalizations. States her most recent prescribed medications were abilify 20mg + Trazodone 200mg HS. Patient denies current outpatient psychiatric care and reports noncompliance to medications. States she is not interested in rehab and will see her psychiatrist when she returns home. As per Dr. Novak's entry 09/04/2016, patient has been prescribed geodon, seroquel, trazodone, depakote, zoloft lexapro, and ritalin and has been diagnosed with ADHD and schizoaffective disorder. At present patient reports difficulty sleeping. Physical/Sexual Abuse/Trauma History: denies but as Dr. Novak entry on 2016 Additional Comment: Urine Drug Screen Results: THC-Marijuana, MEJIA-Cocaine, AMP- Amphetamines, MET-Methamphetamine, BZO-Benzodiazepines Mental Status Exam - Mental Status Exam Alert and Oriented to: Time, Place, Person Cognitive Function: Fair Patient Appearance: Well Groomed Mood: Withdrawn, Irritable Affect: Mood Congruent Patient Behavior: Fatigued Speech Pattern: Delayed Voice Loudness: Moderately Soft/Quiet Thought Process: Intact, Goal Oriented Thought Disorder: Not Present Hallucinations: Denies Suicidal Ideation: Denies Homicidal Ideation: Denies Insight/Judgement: Poor Sleep: Poorly Appetite: Fair Muscle strength/Tone: Normal Gait/Station: Normal Psychiatric Findings - Problem List ([place] 1, 2,3) (1) Amphetamine dependence Current Visit: Yes Status: Acute (2) Alcohol dependence with uncomplicated withdrawal Current Visit: Yes Status: Acute (3) Cocaine dependence Current Visit: Yes Status: Chronic Qualifiers: Substance use status: uncomplicated Qualified Code(s): F14.20 - Cocaine dependence, uncomplicated (4) Nicotine dependence Current Visit: Yes Status: Chronic Qualifiers: Nicotine product type: cigarettes Substance use status: in withdrawal Qualified Code(s): F17.213 - Nicotine dependence, cigarettes, with withdrawal (5) Cannabis dependence, uncomplicated Current Visit: Yes Status: Chronic (6) Substance induced mood disorder Current Visit: Yes Status: Acute (7) Substance-induced sleep disorder Current Visit: Yes Status: Acute - Initial Treatment Plan Initial Treatment Plan: Psychoeducation provided. Detoxification in progress. Will order Trazodone 50mg qhs. Benefits and side effects discussed. Verbal consent given.
--- NOTE | 2018-06-18 16:33 | EKG ---
Test Reason : Blood Pressure : / mmHG Vent. Rate : 067 BPM Atrial Rate : 067 BPM P-R Int : 140 ms QRS Dur : 098 ms QT Int : 432 ms P-R-T Axes : -02 050 041 degrees QTc Int : 456 ms NORMAL SINUS RHYTHM NORMAL ECG WHEN COMPARED WITH ECG OF 17-SEP-2016 19:16, NO SIGNIFICANT CHANGE WAS FOUND Confirmed by Denny Wright ([id number]) on 06/18/2018 4:32:51 PM Referred By: Confirmed By:Denny Wright
[2018-06-18] MEDS: hydrOXYzine PAMOATE 25 MG CAPSULE (FP) PO PRN (22:49)
[2018-06-18] MEDS: THIAMINE HCL 100 MG TABLET (FP) PO SCH (22:49)
[2018-06-18] MEDS: traZODone HCL 50 MG TABLET (FP) PO SCH (22:49)
[2018-06-19] MEDS: diazePAM 5 MG TABLET PO PRN (06:54)
[2018-06-19] MEDS: FERROUS SO4 325 MG TABLET (FP) PO SCH ×3 (07:00→16:52)
[2018-06-19] MEDS: RANITIDINE HCL 150 MG TABLET (FP) PO SCH ×2 (10:22→22:50)
[2018-06-19] MEDS: PRENATAL VITAMINS W/ FOLIC ACID TABLET (FP) PO SCH (10:22)
[2018-06-19] MEDS: diazePAM 5 MG TABLET PO SCH ×2 (10:22→22:50)
[2018-06-19] MEDS: LISINOPRIL 10 MG TABLET (FP) PO SCH (10:22)
[2018-06-19] MEDS: NICOTINE 14 MG/24 HOURS TOPICAL PATCH TD SCH (10:23)
--- NOTE | 2018-06-19 10:39 | PN ---
S CIWA - CIWA Score Nausea/Vomitin-No Nausea/No Vomiting Muscle Tremors: 4-Moderate,w/Arms Extend Anxiety: 3 Agitation: 4-Moderately Restless Paroxysmal Sweats: 3 Orientation: 0-Oriented Tacttile Disturbances: 0-None Auditory Disturbances: 0-None Visual Disturbances: 0-None Headache: 0-None Present CIWA-Ar Total Score: 14 [facility] Progress Note (SOAP) Subjective: anxiety sweats irritable agitation tired Objective: 06/19/18 10:38 Vital Signs Temperature 98.1 F 06/19/18 09:55 Pulse Rate 83 06/19/18 09:55 Respiratory Rate 16 06/19/18 09:55 Blood Pressure 128/79 06/19/18 09:55 O2 Sat by Pulse Oximetry (%) Laboratory Tests 06/17/18 06/18/18 06/18/18 17:02 06:00 08:10 WBC RBC Hgb Hct MCV MCH MCHC RDW Plt Count MPV Sodium Potassium Chloride Carbon Dioxide Anion Gap BUN Creatinine Creat Clearance w eGFR POC Glucometer 130 Random Glucose Calcium Total Bilirubin AST ALT Alkaline Phosphatase Total Protein Albumin RPR Titer Nonreactive HIV 1&2 Antibody Screen Negative HIV P24 Antigen Negative 06/18/18 06/18/18 06/18/18 08:10 08:10 16:44 WBC 3.6 L RBC 4.11 Hgb 11.6 Hct 34.7 MCV 84.4 MCH 28.1 MCHC 33.3 RDW 18.7 H Plt Count 270 MPV 9.5 Sodium 140 Potassium 4.0 Chloride 111 H Carbon Dioxide 26 Anion Gap 3 L BUN 12 Creatinine 0.6 Creat Clearance w eGFR > 60 POC Glucometer 125 Random Glucose 103 Calcium 8.5 Total Bilirubin 0.1 L AST 19 ALT 24 Alkaline Phosphatase 64 Total Protein 6.1 L Albumin 3.0 L RPR Titer HIV 1&2 Antibody Screen HIV P24 Antigen 06/19/18 06:36 WBC RBC Hgb Hct MCV MCH MCHC RDW Plt Count MPV Sodium Potassium Chloride Carbon Dioxide Anion Gap BUN Creatinine Creat Clearance w eGFR POC Glucometer 102 Random Glucose Calcium Total Bilirubin AST ALT Alkaline Phosphatase Total Protein Albumin RPR Titer HIV 1&2 Antibody Screen HIV P24 Antigen aaox3 ambulating no acute distress Assessment: 06/19/18 10:38 withdrawal sx Plan: continue detox increase fluids
[2018-06-19] MEDS: MELATONIN 5 MG TABLETS PO PRN (22:50)
[2018-06-19] MEDS: traZODone HCL 50 MG TABLET (FP) PO SCH (22:50)
[2018-06-19] MEDS: THIAMINE HCL 100 MG TABLET (FP) PO SCH (22:50)
[2018-06-20] MEDS: FERROUS SO4 325 MG TABLET (FP) PO SCH ×3 (07:27→18:36)
[2018-06-20] MEDS: diazePAM 5 MG TABLET PO PRN (08:52)
[2018-06-20] MEDS: NICOTINE 14 MG/24 HOURS TOPICAL PATCH TD SCH (10:17)
[2018-06-20] MEDS: diazePAM 5 MG TABLET PO SCH ×2 (10:17→22:09)
[2018-06-20] MEDS: PRENATAL VITAMINS W/ FOLIC ACID TABLET (FP) PO SCH (10:17)
[2018-06-20] MEDS: LISINOPRIL 10 MG TABLET (FP) PO SCH (10:17)
[2018-06-20] MEDS: RANITIDINE HCL 150 MG TABLET (FP) PO SCH ×2 (10:18→22:09)
--- NOTE | 2018-06-20 10:37 | PN ---
[facility] Progress Note (SOAP) Subjective: sweats restless I'm feeling better Objective: 06/20/18 10:35 Vital Signs Temperature 97.9 F 06/20/18 09:42 Pulse Rate 78 06/20/18 09:42 Respiratory Rate 18 06/20/18 09:42 Blood Pressure 134/78 06/20/18 09:42 O2 Sat by Pulse Oximetry (%) aaox3 ambulating no acute distress Assessment: 06/20/18 10:37 mild withdrawal sx Plan: continue detox increase fluids d/c in am
[2018-06-20] MEDS: THIAMINE HCL 100 MG TABLET (FP) PO SCH (22:09)
[2018-06-20] MEDS: traZODone HCL 50 MG TABLET (FP) PO SCH (22:09)
[2018-06-20] MEDS: MELATONIN 5 MG TABLETS PO PRN (23:36)
[2018-06-20] MEDS: hydrOXYzine PAMOATE 25 MG CAPSULE (FP) PO PRN (23:36)
[2018-06-21] MEDS: FERROUS SO4 325 MG TABLET (FP) PO SCH (07:56)
[2018-06-21 09:28] VITALS: BP 106/51; PULSE 102; TEMP 97.7
--- NOTE | 2018-06-21 09:45 | DS ---
[facility] Detox Discharge Summary Admission Date: 06/17/18 Discharge Date: 06/21/18 - History Present History: Alcohol Dependence, Cannabis Dependence, Cocaine Dependence, Sedative Dependence - Physical Exam Results Vital Signs: Vital Signs Temperature 97.7 F 06/21/18 09:28 Pulse Rate 102 H 06/21/18 09:28 Respiratory Rate 18 06/21/18 09:28 Blood Pressure 106/51 L 06/21/18 09:28 O2 Sat by Pulse Oximetry (%) - Treatment Hospital Course: Detox Protocol Followed, Detoxed Safely, Responded well, Discharged Condition Good, Rehab Referral Accepted - Medication Discharge Medications: Ambulatory Orders traZODone HCL [Trazodone HCl] 200 mg PO HS 04/23/16 Lisinopril [Prinivil] 10 mg PO DAILY #60 tablet 04/27/16 Albuterol Sulfate Inhaler - [Ventolin HFA Inhaler -] 2 puff IH Q4H PRN #1 inhaler 09/21/16 Ferrous Sulfate [Feosol] 325 mg PO TIDCM #90 ud 09/21/16 Ranitidine [Zantac -] 150 mg PO BID #60 tablet 09/21/16 Aripiprazole [Abilify] 20 mg PO DAILY #30 tablet 09/22/16 - Diagnosis (1) Alcohol dependence with uncomplicated withdrawal Current Visit: Yes Status: Chronic (2) Amphetamine dependence Current Visit: Yes Status: Acute (3) Substance-induced sleep disorder Current Visit: Yes Status: Acute (4) Asthma Current Visit: Yes Status: Chronic Qualifiers: Asthma severity: mild Asthma persistence: unspecified Asthma complication type: uncomplicated Qualified Code(s): J45.909 - Unspecified asthma, uncomplicated (5) Cannabis dependence, uncomplicated Current Visit: Yes Status: Chronic (6) Cocaine dependence Current Visit: Yes Status: Chronic Qualifiers: Substance use status: uncomplicated Qualified Code(s): F14.20 - Cocaine dependence, uncomplicated (7) GERD (gastroesophageal reflux disease) Current Visit: Yes Status: Chronic Qualifiers: Esophagitis presence: without esophagitis Qualified Code(s): K21.9 - Gastro -esophageal reflux disease without esophagitis (8) Iron deficiency anemia Current Visit: Yes Status: Chronic Qualifiers: Iron deficiency anemia type: unspecified iron deficiency Qualified Code(s) : D50.9 - Iron deficiency anemia, unspecified (9) Nicotine dependence Current Visit: Yes Status: Chronic Qualifiers: Nicotine product type: cigarettes Substance use status: uncomplicated Qualified Code(s): F17.210 - Nicotine dependence, cigarettes, uncomplicated (10) Cocaine dependence, uncomplicated Current Visit: Yes Status: Chronic (11) Diabetes mellitus type II, controlled Current Visit: No Status: Chronic Qualifiers: Diabetes mellitus custodial insulin use: without terminal gauger use Diabetes mellitus complication detail: with diabetic retinopathy Proliferative retinopathy type: stable Laterality: bilateral (12) Diabetes mellitus with neuropathy Current Visit: No Status: Chronic Qualifiers: Diabetes mellitus type: type 2 (13) Hyperlipemia Current Visit: No Status: Chronic Qualifiers: Hyperlipidemia type: unspecified Qualified Code(s): E78.5 - Hyperlipidemia , unspecified (14) Hypertension Current Visit: Yes Status: Chronic Qualifiers: Hypertension type: essential hypertension Qualified Code(s): I10 - Essential (primary) hypertension (15) PTSD (post-traumatic stress disorder) Current Visit: No Status: Chronic (16) Schizoaffective disorder Current Visit: No Status: Chronic Qualifiers: Schizoaffective disorder type: depressive Qualified Code(s): F25.1 - Schizoaffective disorder, depressive type - AMA Did Patient Leave Against Medical Advice: No (declined rehab; referred to out patient)
[2018-06-21] MEDS ORDERED: diazePAM 5 MG TABLET PO SCH (10:00)
== END 2018-06-21 09:35 | disposition home or self-care (01) | DRG 774 ==
LOC: YASAS 13:41 → Y6N 20:05
PROVIDERS: ADMIT Surgery; ATTEND Surgery
PROC: HZ2ZZZZ Detoxification Services for Substance Abuse Treatment (ICD-10-PCS; principal; 2018-06-17)
DX: F10.230 Alcohol dependence with withdrawal, uncomplicated (principal); F13.20 Sedative, hypnotic or anxiolytic dependence, uncomplicated; F14.20 Cocaine dependence, uncomplicated; F12.20 Cannabis dependence, uncomplicated; F17.210 Nicotine dependence, cigarettes, uncomplicated; F25.1 Schizoaffective disorder, depressive type; F31.9 Bipolar disorder, unspecified; F43.10 Post-traumatic stress disorder, unspecified; F19.24 Other psychoactive substance dependence with psychoactive substance-induced mood disorder; F19.282 Other psychoactive substance dependence with psychoactive substance-induced sleep disorder; I10 Essential (primary) hypertension; J45.909 Unspecified asthma, uncomplicated; B50.9 Plasmodium falciparum malaria, unspecified; K21.9 Gastro-esophageal reflux disease without esophagitis; E78.5 Hyperlipidemia, unspecified; E11.42 Type 2 diabetes mellitus with diabetic polyneuropathy; E11.319 Type 2 diabetes mellitus with unspecified diabetic retinopathy without macular edema; Z91.5 Personal history of self-harm; Z88.0 Allergy status to penicillin; Z91.013 Allergy to seafood; Z91.018 Allergy to other foods
CPT/HCPCS: 36415; 80053; 82962; 85027; 86593; 87389; 90688; 93005; 93010; G0008

== ENCOUNTER 2022-01-02 12:24 | Inpatient (IN) | payer OTHER ==
[2022-01-02 13:16] VITALS: BMI 28.1
[2022-01-02] MEDS ORDERED: P-EPHED 60MG/TRIPROLIDI 2.5MG TABLET PO PRN (15:04)
[2022-01-02] MEDS ORDERED: MAG HYDROX/AL HYDROX/SIMETH 30 ML UNIT-DOSE CUP PO PRN (15:04)
[2022-01-02] MEDS ORDERED: guaiFENesin 200 MG/10 ML 10 ML UNIT-DOSE CUPS PO PRN (15:04)
[2022-01-02] MEDS ORDERED: LOPERAMIDE HCL 2 MG CAPSULE PO PRN (15:04)
[2022-01-02] MEDS ORDERED: MAGNESIUM CITRATE 300 ML BOTTLE PO PRN (15:04)
[2022-01-02] MEDS ORDERED: MAGNESIUM HYDROX 2400MG/30ML ORAL SUSPENSION 30 ML CUP PO PRN (15:04)
[2022-01-02] MEDS ORDERED: NICOTINE 10 MG CARTRIDGE (INHALER) IH PRN (15:04)
[2022-01-02] MEDS: NICOTINE 14 MG/24 HOURS TOPICAL PATCH TD SCH (19:43)
[2022-01-02 20:27] VITALS: RESP 18
[2022-01-02] MEDS: PRENATAL VITAMINS W/ FOLIC ACID TABLET (FP) PO SCH (20:35)
[2022-01-02] MEDS: hydrOXYzine PAMOATE 25 MG CAPSULE (FP) PO PRN (20:36)
[2022-01-02] MEDS: MELATONIN 5 MG TABLETS PO SCH (21:01)
[2022-01-02] MEDS: THIAMINE HCL 100 MG TABLET (FP) PO SCH (21:01)
[2022-01-03] MEDS: PRENATAL VITAMINS W/ FOLIC ACID TABLET (FP) PO SCH (10:34)
[2022-01-03] MEDS: NICOTINE 14 MG/24 HOURS TOPICAL PATCH TD SCH (10:35)
[2022-01-03] MEDS ORDERED: ALBUTEROL SO4 HFA INHALER IH PRN (10:44)
[2022-01-03] MEDS: LISINOPRIL 10 MG TABLET PO SCH (11:07)
[2022-01-03] MEDS ORDERED: ARIPiprazole 20 MG TABLET PO SCH (11:15)
[2022-01-03] MEDS: ARIPiprazole 10 MG TABLET PO SCH (11:16)
[2022-01-03 12:24] LABS: HEMATOCRIT 40.1 % (32.4-45.2); HEMOGLOBIN 13.1 GM/dL (10.7-15.3); MCH 28.3 pg (25.7-33.7); MCHC 32.6 g/dl (32.0-36.0); MEAN CELL VOLUME 86.8 fl (80-96); PLATELET COUNT 274 10^3/uL (134-434); RBC 4.63 M/mm3 (3.60-5.2); RDW 15.8 % (11.6-15.6); WHITE BLOOD COUNT 5.6 K/mm3 (4.0-10.0)
[2022-01-03 12:27] LABS: URINE APPEARANCE CLOUDY; URINE BILIRUBIN NEGATIVE (NEGATIVE); URINE COLOR YELLOW; URINE GLUCOSE (UA) NEGATIVE (NEGATIVE); URINE KETONE NEGATIVE (NEGATIVE); URINE LEUK ESTERASE NEGATIVE (NEGATIVE); URINE NITRITE NEGATIVE (NEGATIVE); URINE PROTEIN NEGATIVE (NEGATIVE); URINE UROBILINOGEN 0.2 mg/dL (0.2-1.0)
[2022-01-03 13:19] LABS: BLOOD UREA NITROGEN 9.6 mg/dL (7-18); CALCIUM 9.1 mg/dL (8.5-10.1)
[2022-01-03 13:22] LABS: BILIRUBIN,TOTAL 0.3 mg/dL (0.2-1); CREATININE 0.6 mg/dL (0.55-1.3); TOT PROT 6.6 g/dl (6.4-8.2)
[2022-01-03] MEDS: traZODone HCL 100 MG TABLET (FP) PO SCH (21:21)
[2022-01-03] MEDS: MELATONIN 5 MG TABLETS PO SCH (21:22)
[2022-01-03] MEDS: hydrOXYzine PAMOATE 25 MG CAPSULE (FP) PO PRN (21:22)
[2022-01-03] MEDS: THIAMINE HCL 100 MG TABLET (FP) PO SCH (21:22)
[2022-01-04] MEDS: hydrOXYzine PAMOATE 25 MG CAPSULE (FP) PO PRN ×2 (06:46→21:29)
[2022-01-04] MEDS: ACETAMINOPHEN 325 MG TABLET (FP) PO PRN ×2 (06:47→18:36)
[2022-01-04] MEDS: NICOTINE 14 MG/24 HOURS TOPICAL PATCH TD SCH (10:04)
[2022-01-04] MEDS: ARIPiprazole 10 MG TABLET PO SCH (10:04)
[2022-01-04] MEDS: LISINOPRIL 10 MG TABLET PO SCH (10:04)
[2022-01-04] MEDS: PRENATAL VITAMINS W/ FOLIC ACID TABLET (FP) PO SCH (10:04)
[2022-01-04] MEDS: traZODone HCL 100 MG TABLET (FP) PO SCH (21:29)
[2022-01-04] MEDS: MELATONIN 5 MG TABLETS PO SCH (21:29)
[2022-01-04] MEDS: THIAMINE HCL 100 MG TABLET (FP) PO SCH (21:29)
[2022-01-05] MEDS: PRENATAL VITAMINS W/ FOLIC ACID TABLET (FP) PO SCH (09:36)
[2022-01-05] MEDS: NICOTINE 14 MG/24 HOURS TOPICAL PATCH TD SCH (09:36)
[2022-01-05] MEDS: ARIPiprazole 10 MG TABLET PO SCH (09:36)
[2022-01-05] MEDS: LISINOPRIL 10 MG TABLET PO SCH (09:37)
[2022-01-05] MEDS: hydrOXYzine PAMOATE 25 MG CAPSULE (FP) PO PRN (09:37)
[2022-01-05] MEDS ORDERED: cloNIDine HCL 0.1 MG TABLET PO ONE (15:43)
[2022-01-05] MEDS: traZODone HCL 100 MG TABLET (FP) PO SCH (21:29)
[2022-01-05] MEDS: MELATONIN 5 MG TABLETS PO SCH (21:29)
[2022-01-05] MEDS: THIAMINE HCL 100 MG TABLET (FP) PO SCH (21:29)
[2022-01-06] MEDS: ARIPiprazole 10 MG TABLET PO SCH (10:14)
[2022-01-06] MEDS: LISINOPRIL 10 MG TABLET PO SCH (10:14)
[2022-01-06] MEDS: PRENATAL VITAMINS W/ FOLIC ACID TABLET (FP) PO SCH (10:14)
[2022-01-06] MEDS: NICOTINE 14 MG/24 HOURS TOPICAL PATCH TD SCH (10:14)
[2022-01-06] MEDS: hydrOXYzine PAMOATE 25 MG CAPSULE (FP) PO PRN ×2 (10:15→21:22)
[2022-01-06] MEDS: THIAMINE HCL 100 MG TABLET (FP) PO SCH (21:21)
[2022-01-06] MEDS: traZODone HCL 100 MG TABLET (FP) PO SCH (21:21)
[2022-01-06] MEDS: MELATONIN 5 MG TABLETS PO SCH (21:30)
[2022-01-07] MEDS: IBUPROFEN 400 MG TABLET (FP) PO PRN ×2 (06:56→14:49)
[2022-01-07] MEDS: PRENATAL VITAMINS W/ FOLIC ACID TABLET (FP) PO SCH (10:27)
[2022-01-07] MEDS: LISINOPRIL 10 MG TABLET PO SCH (10:27)
[2022-01-07] MEDS: ARIPiprazole 10 MG TABLET PO SCH (10:28)
[2022-01-07] MEDS: NICOTINE 14 MG/24 HOURS TOPICAL PATCH TD SCH (10:28)
[2022-01-07] MEDS ORDERED: ARIPiprazole 5 MG TABLET ONE (10:30)
[2022-01-07] MEDS: hydrOXYzine PAMOATE 25 MG CAPSULE (FP) PO PRN ×2 (10:32→21:32)
[2022-01-07] MEDS: THIAMINE HCL 100 MG TABLET (FP) PO SCH (21:32)
[2022-01-07] MEDS: traZODone HCL 100 MG TABLET (FP) PO SCH (21:32)
[2022-01-07] MEDS: MELATONIN 5 MG TABLETS PO SCH (21:33)
[2022-01-08] MEDS ORDERED: ARIPiprazole 5 MG TABLET ONE (09:24)
[2022-01-08] MEDS: PRENATAL VITAMINS W/ FOLIC ACID TABLET (FP) PO SCH (10:35)
[2022-01-08] MEDS: LISINOPRIL 10 MG TABLET PO SCH (10:36)
[2022-01-08] MEDS: ARIPiprazole 10 MG TABLET PO SCH (10:37)
[2022-01-08] MEDS: NICOTINE 14 MG/24 HOURS TOPICAL PATCH TD SCH (10:37)
[2022-01-08] MEDS: hydrOXYzine PAMOATE 25 MG CAPSULE (FP) PO PRN ×2 (10:37→21:23)
[2022-01-08] MEDS: traZODone HCL 100 MG TABLET (FP) PO SCH (21:23)
[2022-01-08] MEDS: THIAMINE HCL 100 MG TABLET (FP) PO SCH (21:23)
[2022-01-08] MEDS: MELATONIN 5 MG TABLETS PO SCH (21:24)
[2022-01-09] MEDS: LISINOPRIL 10 MG TABLET PO SCH (10:32)
[2022-01-09] MEDS: hydrOXYzine PAMOATE 25 MG CAPSULE (FP) PO PRN ×2 (10:32→21:34)
[2022-01-09] MEDS: ARIPiprazole 10 MG TABLET PO SCH (10:33)
[2022-01-09] MEDS: PRENATAL VITAMINS W/ FOLIC ACID TABLET (FP) PO SCH (10:33)
[2022-01-09] MEDS: IBUPROFEN 400 MG TABLET (FP) PO PRN (10:33)
[2022-01-09] MEDS: NICOTINE 14 MG/24 HOURS TOPICAL PATCH TD SCH (10:33)
[2022-01-09] MEDS: traZODone HCL 100 MG TABLET (FP) PO SCH (21:34)
[2022-01-09] MEDS: MELATONIN 5 MG TABLETS PO SCH (21:35)
[2022-01-09] MEDS: THIAMINE HCL 100 MG TABLET (FP) PO SCH (21:35)
[2022-01-10] MEDS ORDERED: ARIPiprazole 5 MG TABLET ONE (09:16)
[2022-01-10] MEDS: IBUPROFEN 400 MG TABLET (FP) PO PRN ×2 (10:33→21:30)
[2022-01-10] MEDS: LISINOPRIL 10 MG TABLET PO SCH (10:34)
[2022-01-10] MEDS: NICOTINE 14 MG/24 HOURS TOPICAL PATCH TD SCH (10:34)
[2022-01-10] MEDS: PRENATAL VITAMINS W/ FOLIC ACID TABLET (FP) PO SCH (10:34)
[2022-01-10] MEDS: ARIPiprazole 10 MG TABLET PO SCH (10:34)
[2022-01-10] MEDS: hydrOXYzine PAMOATE 25 MG CAPSULE (FP) PO PRN ×2 (10:35→21:30)
[2022-01-10] MEDS: MELATONIN 5 MG TABLETS PO SCH (21:28)
[2022-01-10] MEDS: THIAMINE HCL 100 MG TABLET (FP) PO SCH (21:29)
[2022-01-10] MEDS: traZODone HCL 100 MG TABLET (FP) PO SCH (21:29)
[2022-01-11] MEDS: IBUPROFEN 400 MG TABLET (FP) PO PRN ×2 (06:58→18:52)
[2022-01-11] MEDS: LISINOPRIL 10 MG TABLET PO SCH (10:21)
[2022-01-11] MEDS: PRENATAL VITAMINS W/ FOLIC ACID TABLET (FP) PO SCH (10:21)
[2022-01-11] MEDS: hydrOXYzine PAMOATE 25 MG CAPSULE (FP) PO PRN ×2 (10:21→21:19)
[2022-01-11] MEDS: ARIPiprazole 10 MG TABLET PO SCH (10:21)
[2022-01-11] MEDS: NICOTINE 14 MG/24 HOURS TOPICAL PATCH TD SCH (10:22)
[2022-01-11] MEDS: MELATONIN 5 MG TABLETS PO SCH (21:19)
[2022-01-11] MEDS: THIAMINE HCL 100 MG TABLET (FP) PO SCH (21:19)
[2022-01-11] MEDS: traZODone HCL 100 MG TABLET (FP) PO SCH (21:19)
[2022-01-12] MEDS: IBUPROFEN 400 MG TABLET (FP) PO PRN ×3 (06:15→21:29)
[2022-01-12] MEDS: PRENATAL VITAMINS W/ FOLIC ACID TABLET (FP) PO SCH (10:33)
[2022-01-12] MEDS: hydrOXYzine PAMOATE 25 MG CAPSULE (FP) PO PRN ×2 (10:33→21:28)
[2022-01-12] MEDS: ARIPiprazole 10 MG TABLET PO SCH (10:33)
[2022-01-12] MEDS: LISINOPRIL 10 MG TABLET PO SCH (10:34)
[2022-01-12] MEDS: NICOTINE 14 MG/24 HOURS TOPICAL PATCH TD SCH (10:34)
[2022-01-12] MEDS: traZODone HCL 100 MG TABLET (FP) PO SCH (21:28)
[2022-01-12] MEDS: THIAMINE HCL 100 MG TABLET (FP) PO SCH (21:28)
[2022-01-12] MEDS: MELATONIN 5 MG TABLETS PO SCH (21:36)
[2022-01-13] MEDS: IBUPROFEN 400 MG TABLET (FP) PO PRN ×2 (08:53→21:41)
[2022-01-13] MEDS: ARIPiprazole 10 MG TABLET PO SCH (10:17)
[2022-01-13] MEDS: PRENATAL VITAMINS W/ FOLIC ACID TABLET (FP) PO SCH (10:17)
[2022-01-13] MEDS: hydrOXYzine PAMOATE 25 MG CAPSULE (FP) PO PRN ×2 (10:17→21:42)
[2022-01-13] MEDS: NICOTINE 14 MG/24 HOURS TOPICAL PATCH TD SCH (10:18)
[2022-01-13] MEDS: LISINOPRIL 10 MG TABLET PO SCH (10:18)
[2022-01-13] MEDS: THIAMINE HCL 100 MG TABLET (FP) PO SCH (21:41)
[2022-01-13] MEDS: traZODone HCL 100 MG TABLET (FP) PO SCH (21:41)
[2022-01-13] MEDS: MELATONIN 5 MG TABLETS PO SCH (21:42)
[2022-01-14] MEDS: IBUPROFEN 400 MG TABLET (FP) PO PRN ×2 (06:46→21:30)
[2022-01-14] MEDS: hydrOXYzine PAMOATE 25 MG CAPSULE (FP) PO PRN ×2 (10:16→21:28)
[2022-01-14] MEDS: ARIPiprazole 10 MG TABLET PO SCH (10:16)
[2022-01-14] MEDS: PRENATAL VITAMINS W/ FOLIC ACID TABLET (FP) PO SCH (10:16)
[2022-01-14] MEDS: LISINOPRIL 10 MG TABLET PO SCH (10:16)
[2022-01-14] MEDS: NICOTINE 14 MG/24 HOURS TOPICAL PATCH TD SCH (11:09)
[2022-01-14] MEDS: traZODone HCL 100 MG TABLET (FP) PO SCH (21:28)
[2022-01-14] MEDS: THIAMINE HCL 100 MG TABLET (FP) PO SCH (21:28)
[2022-01-14] MEDS: MELATONIN 5 MG TABLETS PO SCH (21:29)
[2022-01-15] MEDS: IBUPROFEN 400 MG TABLET (FP) PO PRN ×2 (06:49→21:48)
[2022-01-15] MEDS: LISINOPRIL 10 MG TABLET PO SCH (10:09)
[2022-01-15] MEDS: PRENATAL VITAMINS W/ FOLIC ACID TABLET (FP) PO SCH (10:09)
[2022-01-15] MEDS: ARIPiprazole 10 MG TABLET PO SCH (10:09)
[2022-01-15] MEDS: hydrOXYzine PAMOATE 25 MG CAPSULE (FP) PO PRN ×2 (10:09→21:50)
[2022-01-15] MEDS: NICOTINE 14 MG/24 HOURS TOPICAL PATCH TD SCH (10:10)
[2022-01-15] MEDS: THIAMINE HCL 100 MG TABLET (FP) PO SCH (21:49)
[2022-01-15] MEDS: traZODone HCL 100 MG TABLET (FP) PO SCH (21:50)
[2022-01-15] MEDS: MELATONIN 5 MG TABLETS PO SCH (21:50)
[2022-01-16] MEDS: IBUPROFEN 400 MG TABLET (FP) PO PRN ×2 (06:26→16:25)
[2022-01-16] MEDS: PRENATAL VITAMINS W/ FOLIC ACID TABLET (FP) PO SCH (10:21)
[2022-01-16] MEDS: hydrOXYzine PAMOATE 25 MG CAPSULE (FP) PO PRN ×2 (10:21→21:33)
[2022-01-16] MEDS: NICOTINE 14 MG/24 HOURS TOPICAL PATCH TD SCH (10:22)
[2022-01-16] MEDS: LISINOPRIL 10 MG TABLET PO SCH (10:22)
[2022-01-16] MEDS: ARIPiprazole 10 MG TABLET PO SCH (10:22)
[2022-01-16] MEDS: traZODone HCL 100 MG TABLET (FP) PO SCH (21:32)
[2022-01-16] MEDS: THIAMINE HCL 100 MG TABLET (FP) PO SCH (21:32)
[2022-01-16] MEDS: MELATONIN 5 MG TABLETS PO SCH (21:33)
[2022-01-17] MEDS: IBUPROFEN 400 MG TABLET (FP) PO PRN (06:51)
[2022-01-17 07:29] VITALS: TEMP 97.3
[2022-01-17 08:29] VITALS: BP 109/74; PULSE 96
[2022-01-17] MEDS: LISINOPRIL 10 MG TABLET PO SCH (09:12)
[2022-01-17] MEDS: PRENATAL VITAMINS W/ FOLIC ACID TABLET (FP) PO SCH (09:12)
[2022-01-17] MEDS: ARIPiprazole 10 MG TABLET PO SCH (09:12)
[2022-01-17] MEDS: NICOTINE 14 MG/24 HOURS TOPICAL PATCH TD SCH (09:12)
== END 2022-01-17 08:55 | disposition home or self-care (01) | DRG 772 ==
LOC: YASAS 12:24 → UNDOADMIN 15:04 → Y6N 15:04 → Y5N 19:04
PROVIDERS: ADMIT Allergy & Immunology; ATTEND Psychiatry & Neurology Pain Medicine
PROC: HZ42ZZZ Group Counseling for Substance Abuse Treatment, Cognitive-Behavioral (ICD-10-PCS; principal; 2022-01-02)
DX: F10.20 Alcohol dependence, uncomplicated (principal); F14.20 Cocaine dependence, uncomplicated; F15.20 Other stimulant dependence, uncomplicated; F12.20 Cannabis dependence, uncomplicated; F17.210 Nicotine dependence, cigarettes, uncomplicated; F19.280 Other psychoactive substance dependence with psychoactive substance-induced anxiety disorder; F19.282 Other psychoactive substance dependence with psychoactive substance-induced sleep disorder; F19.24 Other psychoactive substance dependence with psychoactive substance-induced mood disorder; F25.1 Schizoaffective disorder, depressive type; F31.9 Bipolar disorder, unspecified; F43.10 Post-traumatic stress disorder, unspecified; F90.9 Attention-deficit hyperactivity disorder, unspecified type; E11.42 Type 2 diabetes mellitus with diabetic polyneuropathy; E78.5 Hyperlipidemia, unspecified; I10 Essential (primary) hypertension; Z28.310 Unvaccinated for COVID-19; Z28.9 Immunization not carried out for unspecified reason; Z88.0 Allergy status to penicillin; Z91.013 Allergy to seafood; Z59.00 Homelessness unspecified
CPT/HCPCS: 36415; 80053; 81003; 81025; 85027; 86780; C9803-CS; U0003; U0005